=== PATIENT | female | born 1935 | race Caucasian/White ===

== ENCOUNTER 2024-12-02 16:52 | Inpatient (IN) | payer MEDICARE ==
[2024-12-02] MEDS: Ondansetron 4 MG/2 ML SDV IVPUSH ONE (17:30)
[2024-12-02] MEDS: Morphine 2 MG/ML SYRINGE IVPUSH ONE ×2 (17:30→18:02)
[2024-12-02] MEDS ORDERED: Morphine 2 MG/ML SYRINGE IVPUSH PRN (18:44)
[2024-12-02] MEDS ORDERED: Ondansetron 4 MG Tab.DIS PO PRN (18:44)
[2024-12-02 19:01] LABS: HEMATOCRIT 41.3 % (33.0-47.0); HEMOGLOBIN 13.6 g/dL (12.0-16.0); MEAN CORPUSCULAR HEMOGLOBIN 30.6 pg (26.0-32.0); MEAN CORPUSCULAR HGB CONC 32.9 g/dL (32.0-36.0); RED BLOOD CELL COUNT 4.44 x10^6/uL (4.00-5.50); WHITE BLOOD CELL COUNT,WBC 17.6 x10^3/uL (4.0-10.0)
[2024-12-02 19:09] LABS: CALCIUM 9.2 mg/dL (8.5-10.1); CREATININE 1.7 mg/dL (0.55-1.02); EST CRCL DRUG DOSING (CG) 18.09 mL/min; POTASSIUM,K 4.8 mmol/L (3.5-5.1)
[2024-12-02 19:12] LABS: ANION GAP 14.8 mmol/L (5-15)
[2024-12-02] MEDS: Acetaminophen 325 MG Tab PO SCH (20:46)
[2024-12-02] MEDS: Metoprolol Tartrate 25 MG Tab PO SCH (20:47)
[2024-12-03] MEDS: oxyCODONE 5 MG Tab PO PRN (06:05)
[2024-12-03 08:16] LABS: HEMATOCRIT 38.1 % (33.0-47.0); HEMOGLOBIN 12.2 g/dL (12.0-16.0); MEAN CORPUSCULAR HEMOGLOBIN 30.1 pg (26.0-32.0); MEAN CORPUSCULAR VOLUME 94.1 fL (78.0-93.0); RED BLOOD CELL COUNT 4.05 x10^6/uL (4.00-5.50); WHITE BLOOD CELL COUNT,WBC 9.5 x10^3/uL (4.0-10.0)
[2024-12-03] MEDS: amLODIPine 10 MG Tab PO SCH (08:24)
[2024-12-03] MEDS: Cholecalciferol (Vitamin D3) 25 MCG Tab PO SCH (08:24)
[2024-12-03 08:31] LABS: ANION GAP 11.7 mmol/L (5-15); BLOOD UREA NITROGEN,BUN 44 mg/dL (7-18); CALCIUM 9.1 mg/dL (8.5-10.1); CARBON DIOXIDE,CO2 25 mmol/L (21-32); CHLORIDE,CL 108 mmol/L (98-107); CREATININE 1.6 mg/dL (0.55-1.02); ESTIMATED GFR 31 mL/min (>=60); GLUCOSE RANDOM 111 mg/dL (70-99); POTASSIUM,K 4.7 mmol/L (3.5-5.1); SODIUM,NA 140 mmol/L (136-145)
[2024-12-04] MEDS: Heparin Sodium 5,000 Units/ML Vial SUBCUT SCH (15:16)
[2024-12-04 17:59] VITALS: BP 138/63; PULSE 79
== END 2024-12-04 18:40 | disposition short-term general hospital (02) | DRG 534 ==
LOC: VM.ED 16:52 → SUPCPDRO 16:52 → VM.MS 18:30 → OBSVTOIN 12-03 16:45
PROVIDERS: ADMIT Family Medicine; ATTEND Family Medicine
PROC: 2W3MX3Z Immobilization of Left Lower Extremity using Brace (ICD-10-PCS; principal; 2024-12-03)
DX: S72.402A Unspecified fracture of lower end of left femur, initial encounter for closed fracture (principal); M97.12XA Periprosthetic fracture around internal prosthetic left knee joint, initial encounter; M85.89 Other specified disorders of bone density and structure, multiple sites; N18.30 Chronic kidney disease, stage 3 unspecified; M13.0 Polyarthritis, unspecified; H91.90 Unspecified hearing loss, unspecified ear; E78.00 Pure hypercholesterolemia, unspecified; I12.9 Hypertensive chronic kidney disease with stage 1 through stage 4 chronic kidney disease, or unspecified chronic kidney disease; E55.9 Vitamin D deficiency, unspecified; M10.9 Gout, unspecified; Z96.642 Presence of left artificial hip joint; Z96.652 Presence of left artificial knee joint; Z98.890 Other specified postprocedural states; Z79.899 Other long term (current) drug therapy; W18.30XA Fall on same level, unspecified, initial encounter; Y92.89 Other specified places as the place of occurrence of the external cause; W19.XXXA Unspecified fall, initial encounter
CPT/HCPCS: 36415; 73560-LT; 73590-LT; 80048; 85027; 96374; 96375; 96376; 99284; 99285-25; A9270-GY; G0378; J1644; J2270; J2405

== ENCOUNTER 2024-12-09 08:33 | Inpatient (IN) | payer MEDICARE ==
[2024-12-09 17:58] LABS: APPEARANCE,URINE SLIGHTLY CLOUDY (CLEAR); GLUCOSE,URINE NEGATIVE (NEGATIVE); OCCULT BLOOD,URINE NEGATIVE (NEGATIVE)
[2024-12-09 18:02] LABS: SQUAMOUS EPITHELIAL CELLS,UR FEW /HPF (NOT SEEN)
[2024-12-09] MEDS: Calcium Citrate/Vitamin D3 315 MG-250 Unit Tab PO SCH (18:08)
[2024-12-09] MEDS: Sennosides/Docusate Sodium 50-8.6 MG Tab PO SCH (20:42)
[2024-12-09] MEDS ORDERED: METOPROLOL TARTRATE 75 MG PO SCH (21:00)
[2024-12-10 07:04] LABS: PLATELET COUNT,PLT 303.0 x10^3/uL (130-400); RED BLOOD CELL COUNT 3.06 x10^6/uL (4.00-5.50); WHITE BLOOD CELL COUNT,WBC 7.8 x10^3/uL (4.0-10.0)
[2024-12-10] MEDS: Cholecalciferol (Vitamin D3) 25 MCG Tab PO SCH (08:21)
[2024-12-11 06:57] LABS: BASOPHILS ABSOLUTE AUTO 0.0 x10^3/uL (0.0-0.2); BASOPHILS PERCENT AUTO 0.2 % (0.2-1.2); EOSINOPHILS ABSOLUTE AUTO 0.7 x10^3/uL (0.0-0.5); EOSINOPHILS PERCENT AUTO 8.2 % (0.0-4.0); IMMATURE GRAN ABSOLUTE AUTO 0.36 x10^3/uL (0.00-0.07); IMMATURE GRAN PERCENT AUTO 4.00 % (0.00-0.43); LYMPHOCYTES ABSOLUTE AUTO 2.6 x10^3/uL (1.0-4.8); LYMPHOCYTES PERCENT AUTO 29.2 % (25.0-50.0); MONOCYTES ABSOLUTE AUTO 0.7 x10^3/uL (0.0-0.8); MONOCYTES PERCENT AUTO 7.4 % (2.0-11.0); NEUTROPHILS ABSOLUTE AUTO 4.6 x10^3/uL (1.8-7.7); NEUTROPHILS PERCENT AUTO 51.0 % (50.0-80.0); PLATELET COUNT,PLT 347 x10^3/uL (130-400); RED BLOOD CELL COUNT 3.23 x10^6/uL (4.00-5.50); WHITE BLOOD CELL COUNT,WBC 9.0 x10^3/uL (4.0-10.0)
[2024-12-11 07:12] LABS: A/G RATIO 0.66; ALANINE AMINOTRANSFERASE,ALT 26.0 U/L (14-59); ASPARTATE AMNIOTRANSFERASE,AST 71.0 U/L (15-37); BILIRUBIN TOTAL 0.9 mg/dL (0.2-1.0); BLOOD UREA NITROGEN,BUN 34.0 mg/dL (7-18); CARBON DIOXIDE,CO2 24.0 mmol/L (21-32); CHLORIDE,CL 108.0 mmol/L (98-107); CREATININE 1.5 mg/dL (0.55-1.02); EST CRCL DRUG DOSING (CG) 20.5 mL/min; GLUCOSE RANDOM 90.0 mg/dL (70-99); POTASSIUM,K 5.2 mmol/L (3.5-5.1); PROTEIN TOTAL,TP 6.3 g/dL (6.4-8.2); SODIUM,NA 140.0 mmol/L (136-145)
[2024-12-11 07:15] LABS: ESTIMATED GFR 33.0 mL/min (>=60)
[2024-12-13 07:22] LABS: PLATELET COUNT,PLT 381.0 x10^3/uL (130-400); RED BLOOD CELL COUNT 3.17 x10^6/uL (4.00-5.50); WHITE BLOOD CELL COUNT,WBC 10.0 x10^3/uL (4.0-10.0)
[2024-12-16 06:42] LABS: BASOPHILS ABSOLUTE AUTO 0.0 x10^3/uL (0.0-0.2); BASOPHILS PERCENT AUTO 0.3 % (0.2-1.2); EOSINOPHILS ABSOLUTE AUTO 0.5 x10^3/uL (0.0-0.5); EOSINOPHILS PERCENT AUTO 5.5 % (0.0-4.0); IMMATURE GRAN ABSOLUTE AUTO 0.26 x10^3/uL (0.00-0.07); IMMATURE GRAN PERCENT AUTO 2.70 % (0.00-0.43); LYMPHOCYTES ABSOLUTE AUTO 2.7 x10^3/uL (1.0-4.8); LYMPHOCYTES PERCENT AUTO 27.9 % (25.0-50.0); MONOCYTES ABSOLUTE AUTO 0.7 x10^3/uL (0.0-0.8); MONOCYTES PERCENT AUTO 7.2 % (2.0-11.0); NEUTROPHILS ABSOLUTE AUTO 5.5 x10^3/uL (1.8-7.7); NEUTROPHILS PERCENT AUTO 56.4 % (50.0-80.0); PLATELET COUNT,PLT 458 x10^3/uL (130-400); RED BLOOD CELL COUNT 3.30 x10^6/uL (4.00-5.50); WHITE BLOOD CELL COUNT,WBC 9.7 x10^3/uL (4.0-10.0)
[2024-12-16 07:01] LABS: A/G RATIO 0.62; ALANINE AMINOTRANSFERASE,ALT 18.0 U/L (14-59); ASPARTATE AMNIOTRANSFERASE,AST 23.0 U/L (15-37); BILIRUBIN TOTAL 0.6 mg/dL (0.2-1.0); BLOOD UREA NITROGEN,BUN 35.0 mg/dL (7-18); CARBON DIOXIDE,CO2 24.0 mmol/L (21-32); CHLORIDE,CL 108.0 mmol/L (98-107); CREATININE 1.9 mg/dL (0.55-1.02); EST CRCL DRUG DOSING (CG) 16.19 mL/min; GLUCOSE RANDOM 89.0 mg/dL (70-99); POTASSIUM,K 4.9 mmol/L (3.5-5.1); PROTEIN TOTAL,TP 6.3 g/dL (6.4-8.2); SODIUM,NA 140.0 mmol/L (136-145)
[2024-12-16 07:02] LABS: ESTIMATED GFR 25.0 mL/min (>=60)
[2024-12-19 06:53] LABS: PLATELET COUNT,PLT 489.0 x10^3/uL (130-400); RED BLOOD CELL COUNT 3.35 x10^6/uL (4.00-5.50); WHITE BLOOD CELL COUNT,WBC 10.7 x10^3/uL (4.0-10.0)
[2024-12-22 07:16] LABS: PLATELET COUNT,PLT 424.0 x10^3/uL (130-400); RED BLOOD CELL COUNT 3.51 x10^6/uL (4.00-5.50); WHITE BLOOD CELL COUNT,WBC 8.2 x10^3/uL (4.0-10.0)
[2024-12-23 08:04] LABS: BLOOD UREA NITROGEN,BUN 36.0 mg/dL (7-18); CARBON DIOXIDE,CO2 21.0 mmol/L (21-32); CHLORIDE,CL 109.0 mmol/L (98-107); CREATININE 1.8 mg/dL (0.55-1.02); EST CRCL DRUG DOSING (CG) 17.09 mL/min; GLUCOSE RANDOM 90.0 mg/dL (70-99); POTASSIUM,K 5.0 mmol/L (3.5-5.1); SODIUM,NA 139.0 mmol/L (136-145)
[2024-12-23 08:05] LABS: ESTIMATED GFR 27.0 mL/min (>=60)
[2024-12-25 07:00] LABS: PLATELET COUNT,PLT 383.0 x10^3/uL (130-400); RED BLOOD CELL COUNT 3.61 x10^6/uL (4.00-5.50); WHITE BLOOD CELL COUNT,WBC 7.4 x10^3/uL (4.0-10.0)
[2024-12-28 07:42] LABS: PLATELET COUNT,PLT 331.0 x10^3/uL (130-400); RED BLOOD CELL COUNT 3.43 x10^6/uL (4.00-5.50); WHITE BLOOD CELL COUNT,WBC 7.9 x10^3/uL (4.0-10.0)
[2024-12-30 07:15] LABS: A/G RATIO 0.64; ALANINE AMINOTRANSFERASE,ALT 13.0 U/L (14-59); ASPARTATE AMNIOTRANSFERASE,AST 17.0 U/L (15-37); BILIRUBIN TOTAL 0.6 mg/dL (0.2-1.0); BLOOD UREA NITROGEN,BUN 34.0 mg/dL (7-18); CARBON DIOXIDE,CO2 23.0 mmol/L (21-32); CHLORIDE,CL 107.0 mmol/L (98-107); CREATININE 1.7 mg/dL (0.55-1.02); EST CRCL DRUG DOSING (CG) 18.09 mL/min; ESTIMATED GFR 29.0 mL/min (>=60); GLUCOSE RANDOM 96.0 mg/dL (70-99); POTASSIUM,K 4.6 mmol/L (3.5-5.1); PROTEIN TOTAL,TP 6.9 g/dL (6.4-8.2); SODIUM,NA 139.0 mmol/L (136-145)
[2025-01-13 06:42] LABS: BASOPHILS ABSOLUTE AUTO 0.0 x10^3/uL (0.0-0.2); BASOPHILS PERCENT AUTO 0.3 % (0.2-1.2); EOSINOPHILS ABSOLUTE AUTO 0.4 x10^3/uL (0.0-0.5); EOSINOPHILS PERCENT AUTO 4.6 % (0.0-4.0); IMMATURE GRAN ABSOLUTE AUTO 0.07 x10^3/uL (0.00-0.07); IMMATURE GRAN PERCENT AUTO 0.70 % (0.00-0.43); LYMPHOCYTES ABSOLUTE AUTO 2.6 x10^3/uL (1.0-4.8); LYMPHOCYTES PERCENT AUTO 27.2 % (25.0-50.0); MONOCYTES ABSOLUTE AUTO 0.9 x10^3/uL (0.0-0.8); MONOCYTES PERCENT AUTO 8.8 % (2.0-11.0); NEUTROPHILS ABSOLUTE AUTO 5.6 x10^3/uL (1.8-7.7); NEUTROPHILS PERCENT AUTO 58.4 % (50.0-80.0); PLATELET COUNT,PLT 329 x10^3/uL (130-400); RED BLOOD CELL COUNT 3.44 x10^6/uL (4.00-5.50); WHITE BLOOD CELL COUNT,WBC 9.6 x10^3/uL (4.0-10.0)
[2025-01-13 07:08] LABS: A/G RATIO 0.71; ALANINE AMINOTRANSFERASE,ALT 19.0 U/L (14-59); ASPARTATE AMNIOTRANSFERASE,AST 19.0 U/L (15-37); BILIRUBIN TOTAL 0.3 mg/dL (0.2-1.0); BLOOD UREA NITROGEN,BUN 44.0 mg/dL (7-18); CARBON DIOXIDE,CO2 22.0 mmol/L (21-32); CHLORIDE,CL 109.0 mmol/L (98-107); CREATININE 1.7 mg/dL (0.55-1.02); EST CRCL DRUG DOSING (CG) 17.74 mL/min; GLUCOSE RANDOM 111.0 mg/dL (70-99); POTASSIUM,K 4.5 mmol/L (3.5-5.1); PROTEIN TOTAL,TP 6.5 g/dL (6.4-8.2); SODIUM,NA 141.0 mmol/L (136-145)
[2025-01-13 07:09] LABS: ESTIMATED GFR 28.0 mL/min (>=60)
[2025-01-30 06:54] LABS: BASOPHILS ABSOLUTE AUTO 0.0 x10^3/uL (0.0-0.2); BASOPHILS PERCENT AUTO 0.4 % (0.2-1.2); EOSINOPHILS ABSOLUTE AUTO 0.4 x10^3/uL (0.0-0.5); EOSINOPHILS PERCENT AUTO 3.8 % (0.0-4.0); IMMATURE GRAN ABSOLUTE AUTO 0.06 x10^3/uL (0.00-0.07); IMMATURE GRAN PERCENT AUTO 0.60 % (0.00-0.43); LYMPHOCYTES ABSOLUTE AUTO 3.1 x10^3/uL (1.0-4.8); LYMPHOCYTES PERCENT AUTO 32.9 % (25.0-50.0); MONOCYTES ABSOLUTE AUTO 0.8 x10^3/uL (0.0-0.8); MONOCYTES PERCENT AUTO 8.3 % (2.0-11.0); NEUTROPHILS ABSOLUTE AUTO 5.1 x10^3/uL (1.8-7.7); NEUTROPHILS PERCENT AUTO 54.0 % (50.0-80.0); PLATELET COUNT,PLT 292 x10^3/uL (130-400); RED BLOOD CELL COUNT 3.62 x10^6/uL (4.00-5.50); WHITE BLOOD CELL COUNT,WBC 9.5 x10^3/uL (4.0-10.0)
[2025-01-30 07:17] LABS: A/G RATIO 0.75; ALANINE AMINOTRANSFERASE,ALT 14.0 U/L (14-59); BILIRUBIN TOTAL 0.4 mg/dL (0.2-1.0); BLOOD UREA NITROGEN,BUN 37.0 mg/dL (7-18); CARBON DIOXIDE,CO2 24.0 mmol/L (21-32); CHLORIDE,CL 108.0 mmol/L (98-107); CREATININE 1.8 mg/dL (0.55-1.02); EST CRCL DRUG DOSING (CG) 16.76 mL/min; GLUCOSE RANDOM 95.0 mg/dL (70-99); POTASSIUM,K 4.4 mmol/L (3.5-5.1); PROTEIN TOTAL,TP 6.3 g/dL (6.4-8.2); SODIUM,NA 140.0 mmol/L (136-145)
[2025-01-30 07:18] LABS: ESTIMATED GFR 27.0 mL/min (>=60)
[2025-01-30 07:27] LABS: ASPARTATE AMNIOTRANSFERASE,AST 16.0 U/L (15-37)
== END 2025-01-31 15:20 | disposition home health service (06) | DRG 560 ==
LOC: VM.MS 11:52
PROVIDERS: ADMIT Family Medicine; ATTEND Family Medicine
DX: S72.402D Unspecified fracture of lower end of left femur, subsequent encounter for closed fracture with routine healing (principal); D62 Acute posthemorrhagic anemia; R53.1 Weakness; E78.00 Pure hypercholesterolemia, unspecified; Z66 Do not resuscitate; I12.9 Hypertensive chronic kidney disease with stage 1 through stage 4 chronic kidney disease, or unspecified chronic kidney disease; N18.32 Chronic kidney disease, stage 3b; M10.9 Gout, unspecified; M54.50 Low back pain, unspecified; M19.90 Unspecified osteoarthritis, unspecified site; E66.9 Obesity, unspecified; E55.9 Vitamin D deficiency, unspecified; H91.90 Unspecified hearing loss, unspecified ear; M85.80 Other specified disorders of bone density and structure, unspecified site; R74.01 Elevation of levels of liver transaminase levels; W01.0XXD Fall on same level from slipping, tripping and stumbling without subsequent striking against object, subsequent encounter; Z96.652 Presence of left artificial knee joint; Z79.899 Other long term (current) drug therapy; Z79.82 Long term (current) use of aspirin; Z98.890 Other specified postprocedural states; Z98.51 Tubal ligation status; Z68.36 Body mass index [BMI] 36.0-36.9, adult
CPT/HCPCS: 36415; 80048; 80053; 81001; 85025; 85027; 87086; 97110-GO; 97110-GP; 97116-GP; 97161-GP; 97164-GP; 97165-GO; 97168-GO; 97530-GO; 97530-GP; 97535-GO; A9270-GY; J1650